=== PATIENT | male | born 1945 | race Caucasian/White ===

== ENCOUNTER 2020-03-27 13:10 | Outpatient (CLI) | payer MEDICARE, SELFPAY ==
[2020-03-30 01:37] LABS: PSA, Free 0.16 ng/mL; PSA, Total 1.9 ng/mL (<=4.0)
== END 2020-03-27 13:11 | disposition home or self-care (01) ==
LOC: ANHLAB 13:12
PROVIDERS: PCP Family Medicine; Visit Provider Radiology Radiation Oncology
DX: C61 Malignant neoplasm of prostate (principal)
CPT/HCPCS: 36415; 84153; 84154

== ENCOUNTER 2020-03-27 13:49 | Outpatient (CLI) | payer MEDICARE, SELFPAY ==
--- NOTE | ~2020-03-27 | CT_ITS ---
EXAMINATION:CT chest wo con DATE: 03/27/2020 14:16 INDICATION: Right lung lower lobe nodule. TECHNIQUE: Computed tomography (CT) of the chest was performed without intravenous contrast. Automate d exposure control and iterative reconstruction technique were employed. The dose-length product (DLP ) was 63.71 mGy-cm. COMPARISON: Chest CT 08/30/2019, 03/01/2019, 10/25/2018 FINDINGS: There is mild emphysema. There is mild scarring at left lung apex. There is mucous plugging in the lower lobes. There is mild atelectasis in the lower lobes. Calcified right lung nodules are c onsistent with old granulomatous disease. There is a 6 mm nodule in left lower lobe, stable from 10/10. There is a 5 mm nodule in left lower lobe with interval improvement. There is a 2.5 x 2.2 cm nodule in right lower lobe, stable from 10/25/2018 with benign biopsy results on 09/16/2019. There is a chronic 6 mm nodule at right major fissure. There are chronic 6 mm and 4 mm nodules in right lower lobe. No pleural effusion. The heart size is normal. There are coronary artery calcifications. No per icardial effusion. Calcifications in the spleen are consistent with old granulomatous disease. There is moderate thoracic spondylosis. There is mild chronic anterior wedging of multiple thoracic vertebr al bodies. IMPRESSION: 1. Stable pulmonary nodules, likely benign. 2. Mild emphysema. Reviewed, dictated and finalized at location E.
== END 2020-03-27 13:50 | disposition home or self-care (01) ==
LOC: ANHIMG 13:50
PROVIDERS: PCP Family Medicine; Visit Provider Radiology Radiation Oncology
DX: R91.1 Solitary pulmonary nodule (principal); J43.9 Emphysema, unspecified
CPT/HCPCS: 36415; 71250; 84153; 84154

== ENCOUNTER 2021-04-02 08:58 | Outpatient (CLI) | payer MEDICARE, SELFPAY ==
--- NOTE | ~2021-04-02 | CT_ITS ---
EXAMINATION: CT lung screening DATE: 04/02/2021 09:24 INDICATION: Personal history of nicotine dependence, prior smoker with 40 pack year history TECHNIQUE: Computed tomography (CT) of the chest was performed without intravenous contrast. The dose -length product (DLP) was 65.96 mGy-cm. Automated exposure control and iterative reconstruction techn [employer] were employed. COMPARISON: 03/27/2020 FINDINGS: There are multiple stable pulmonary nodules in the lungs. The largest is a 2.5 cm nodule of the right lower lobe which is previously undergone benign biopsy. No new pulmonary nodules are ident ified. There is mild emphysema. No pathologically enlarged thoracic lymph nodes are identified. The h eart size is normal. There is no pleural effusion or pneumothorax. Scarring is noted in the lung apic es. There is calcified coronary artery atherosclerosis. IMPRESSION: 1. Lung-RADS category 2: Benign appearance or behavior. Continue annual screening with noncontrast lo w-dose chest CT in 12 months. Reviewed, dictated and finalized at location A. IMPRESSION: 1. Lung-RADS category 2: Benign appearance or behavior. Continue annual screeni ng with noncontrast low-dose chest CT in 12 months.
== END 2021-04-02 08:59 | disposition home or self-care (01) ==
PROVIDERS: Visit Provider Radiology Radiation Oncology
DX: Z12.2 Encounter for screening for malignant neoplasm of respiratory organs (principal); Z87.891 Personal history of nicotine dependence
CPT/HCPCS: 71271

== ENCOUNTER 2022-04-10 10:08 | Outpatient (CLI) | payer MEDICARE, SELFPAY ==
--- NOTE | ~2022-04-10 | CT_ITS ---
EXAMINATION: CT lung screening DATE: 04/10/2022 10:27 INDICATION: Z12.2 - Encounter for screening for malignant neoplasm of... TECHNIQUE: Computed tomography (CT) of the chest was performed without intravenous contrast. Addition al 3D reconstructions utilizing coronal maximum intensity projection (MIP) were performed. Automated exposure control and iterative reconstruction technique were employed. The dose-length product was 64 .52 mGy-cm. COMPARISON: 04/02/2021 FINDINGS: Mild to moderate emphysema. There are new regions of patchy groundglass and more dense bandlike conso lidation in the bilateral lower lobes and in the anterior segment of the right upper lobe. With these bands extends through a prior 2.2 x 1.8 cm masslike opacity in the posterior basilar segment of the right lower lobe. The masslike opacity with prior biopsy demonstrating findings consistent with organ izing pneumonia has decreased in size to currently measuring approximately 1.7 x 1.6 cm. Also new are more subtle small groundglass opacities and tree-in-bud pattern in the right middle lobe. There are some scattered mucous plugging in the lower lobe bronchi extending to the regions of the lung disease . No pulmonary edema, pleural effusion or pneumothorax. Heart size is normal. Atherosclerotic coronar y artery calcification. Thoracic aorta is normal in caliber. No pathologically enlarged thoracic lymp hadenopathy. Thoracic kyphosis with chronic mild anterior wedging at T8-T11. IMPRESSION: 1. . Lung-RADS category 2S: Benign appearance or behavior. Continue annual screening with noncontrast low-dose chest CT in 12 months. S designation for clinically significant nonlung cancer findings of new lung disease in the right middle, right upper and bilateral lower lobes with appearance along wi th associated bronchial mucus plugging consistent with pneumonia with differential for the peripheral bandlike consolidation also including organizing pneumonia or COVID pneumonia. 2. Mild to moderate emphysema. Reviewed, dictated and finalized at location B. IMPRESSION: 1. . Lung-RADS category 2S: Benign appearance or behavior. Continue annual scre ening with noncontrast low-dose chest CT in 12 months. S designation for clini damian significant nonlung cancer findings of new lung disease in the right midd le, right upper and bilateral lower lobes with appearance along with associated bronchial mucus plugging consistent with pneumonia with differential for the p eripheral bandlike consolidation also including organizing pneumonia or COVID p neumonia. 2. Mild to moderate emphysema.
[2022-04-10 12:19] LABS: Prostate Specific Antigen 0.5 ng/mL (< OR = 4.0)
== END 2022-04-10 10:09 | disposition home or self-care (01) ==
LOC: ANHIMG 10:10
PROVIDERS: PCP Family Medicine; Visit Provider Radiology Radiation Oncology
DX: C61 Malignant neoplasm of prostate (principal); Z12.2 Encounter for screening for malignant neoplasm of respiratory organs; Z87.891 Personal history of nicotine dependence; Z85.46 Personal history of malignant neoplasm of prostate
CPT/HCPCS: 36415; 71271; 84153

== ENCOUNTER 2022-07-22 09:35 | Outpatient (CLI) | payer MEDICARE, SELFPAY ==
--- NOTE | ~2022-07-22 | CT_ITS ---
EXAMINATION: CT chest high resolution wo ar DATE: 07/22/2022 09:55 INDICATION: Abnormal lung cancer screening CT TECHNIQUE: Computed tomography (CT) of the chest was performed without intravenous contrast. The dose -length product (DLP) was 154.36 mGy-cm. Automated exposure control and iterative reconstruction tech nique were employed. COMPARISON: 04/10/2022, 03/27/2020 FINDINGS: There is a stable nodule of the right lower lobe previously demonstrated to reflect organiz ing pneumonia by CT-guided biopsy. Groundglass opacities of the lower lobes persist but have improved since the comparison examination. There are stable subpleural nodules of the right lower lobe as wel l as a stable right lower lobe nodule abutting the major fissure. No pleural effusion or pneumothorax . There is moderate emphysema. No pathologically enlarged thoracic lymph nodes are identified. The he art size is normal. Calcified coronary artery atherosclerosis is noted. There is a mucous plugging ar e again noted in the lower lobes. IMPRESSION: 1. Persistent but improved groundglass opacities in the lower lobes, consistent with resolving infect ion/inflammation. Stable pulmonary nodules. Annual low-dose lung cancer screening CT is recommended. Reviewed, dictated and finalized at location B. IMPRESSION: 1. Persistent but improved groundglass opacities in the lower lobes, consistent with resolving infection/inflammation. Stable pulmonary nodules. Annual low-do se lung cancer screening CT is recommended.
== END 2022-07-22 09:36 | disposition home or self-care (01) ==
PROVIDERS: PCP Family Medicine; Visit Provider Radiology Radiation Oncology
DX: R93.89 Abnormal findings on diagnostic imaging of other specified body structures (principal)
CPT/HCPCS: 71250

== ENCOUNTER 2023-04-15 14:56 | Outpatient (CLI) | payer MEDICARE, SELFPAY ==
--- NOTE | ~2023-04-15 | CT_ITS ---
EXAMINATION: CT lung screening DATE: 04/15/2023 14:51 INDICATION: Personal history of nicotine dependence, prior smoker with 40 pack year history TECHNIQUE: Computed tomography (CT) of the chest was performed without intravenous contrast. The dose -length product (DLP) was 65.40 mGy-cm. Automated exposure control and iterative reconstruction techn ique were employed. COMPARISON: 07/22/2022, 04/10/2022, 04/02/2021, 08/30/2019 FINDINGS: There is moderate emphysema. A right lower lobe nodule, previously demonstrated to reflect organizing pneumonia by CT-guided biopsy, is slightly decreased in size and demonstrates small industrial engineering intern al cystic components. Subpleural opacities at the lateral aspect of the right lower lobe demonstrates slight interval worsening compared to the most recent comparison but remained improved compared to t he 04/30/2022 examination. There is a 7 mm nodule of the right lower lobe abutting the major fissure o n image 85. There are subpleural nodules of the right lower lobe on image 79 which measure 6 mm and 4 mm which demonstrate low interval increase in size. There is a 5 mm nodule of the right lower lobe o n image 93. There is mucous plugging in the left lower lobe. No pleural effusion or pneumothorax. No pathologically enlarged thoracic lymph nodes are identified. The heart size is normal. Calcified yenny nary artery atherosclerosis is noted. IMPRESSION: 1. Lung-RADS category 4B: Very suspicious. Findings for which additional diagnostic testing, PET/CT, and/or tissue sampling is recommended. Reviewed, dictated and finalized at location F. IMPRESSION: 1. Lung-RADS category 4B: Very suspicious. Findings for which additional diagno stic testing, PET/CT, and/or tissue sampling is recommended.
[2023-04-15 16:23] LABS: Prostate Specific Antigen 0.3 ng/mL (< OR = 4.0)
== END 2023-04-15 14:57 | disposition home or self-care (01) ==
PROVIDERS: PCP Radiology Radiation Oncology; Visit Provider Radiology Radiation Oncology
DX: Z87.891 Personal history of nicotine dependence (principal); Z12.2 Encounter for screening for malignant neoplasm of respiratory organs; Z85.46 Personal history of malignant neoplasm of prostate
CPT/HCPCS: 36415; 71271; 84153

== ENCOUNTER 2023-05-01 08:53 | Outpatient (CLI) | payer MEDICARE, SELFPAY ==
--- NOTE | ~2023-05-01 | PE_ITS ---
EXAMINATION: PET skull to mid thigh DATE: 05/01/2023 11:30 INDICATION: Normal findings in lung field on prior imaging TECHNIQUE: Blood glucose level was 92 mg/dL. 9.317 mCi of 18-fluorodeoxyglucose (18-FDG) was administ ered i.v. Low dose computed tomography (CT) images were acquired from the base of the brain to the pr oximal thighs for attenuation correction and anatomic localization. Positron emission tomography (PET ) images were acquired in the same distribution beginning 52 minutes after injection. Images includin g fused PET/CT images were reconstructed in axial, coronal, and sagittal planes. Automated exposure c ontrol technique was employed. The dose-length product was 481.20mGy-cm. COMPARISON: Chest CT dated 04/15/2023 and PET/CT dated 12/03/2018 FINDINGS: Head/neck: There is symmetric increased activity in the oral cavity, parotid glands, submandibular glands and o cular muscles without CT correlate, likely physiologic. There is additional mild activity at the colten phery of the nearly completely opacified bilateral maxillary sinuses with air-fluid level on the left suggesting acute sinusitis. No pathologically enlarged cervical lymphadenopathy or suspicious foci o f increased FDG uptake in the visualized head or neck. Chest: Moderate emphysema. Again seen is mild uptake associated with geographic regions of groundglass opaci ty and consolidation in the bilateral lower lobes consistent with chronic scarring and interstitial l robbin disease. This includes a 2.1 cm more masslike opacity in the posterior basilar segment of the rig ht lower lobe previously biopsied with pathology read as changes consistent with organizing pneumoni a. No evidence of neoplasm. No evident FDG uptake associated with the additional smaller nodules in the right lower lobe. No pleural effusion. Heart size is normal. Atherosclerotic coronary artery calc ifications. Vascular is normal in caliber. No pathologically enlarged or FDG avid thoracic lymphadeno balta. Abdomen/pelvis/proximal thighs: Physiologic renal accumulation and excretion of FDG activity in the kidneys, bladder and along portio ns of ureters. Normal degree and heterogenous pattern of increased uptake throughout the liver withou t radiologic correlate or dominant FDG avid lesion. The gallbladder, pancreas and bilateral adrenal g lands are normal. Relatively homogeneous FDG uptake throughout the enlarged spleen which measures 17. 5 cm in maximal length time both the size and degree of FDG uptake are significantly increased from t he time of the prior PET CT at which time the splenic length measured 9.8 cm and has increased from at which time the splenic length measured 12.4 cm. Mild to moderate uptake scattered through out the stomach and bowels without radiologic correlate, also likely physiologic. There is moderate d iverticulosis with sigmoid colon predominance and without adjacent from trace stranding to suggest di verticulitis. No other abnormal foci of increased FDG uptake or pathologically enlarged lymphadenopat hy in the abdomen, pelvis or proximal thighs. Musculoskeletal: Moderate thoracic and lower cervical spondylosis. No suspicious lytic, blastic or FDG avid bone lesio ns. IMPRESSION: 1. No increased FDG uptake associated with the multiple pulmonary nodules of concern on prior CT. Whjaime kowalski reassuring would continue with follow-up low-dose noncontrast chest CT in 6 months. 2. Nonspecific splenomegaly now measuring 17.5 cm maximal length without evident pathologically enlar ged or FDG avid lymphadenopathy. Reviewed, dictated and finalized at location A. IMPRESSION: 1. No increased FDG uptake associated with the multiple pulmonary nodules of co ncern on prior CT. While reassuring would continue with follow-up low-dose nonc ontrast c
[2023-05-01 09:56] LABS: Glucose Point of Care 92 mg/dl (65-105)
== END 2023-05-01 08:54 | disposition home or self-care (01) ==
PROVIDERS: PCP Physician Assistant; Visit Provider Radiology Radiation Oncology
DX: R91.8 Other nonspecific abnormal finding of lung field (principal)
CPT/HCPCS: 78815; A9552

== ENCOUNTER 2023-05-08 11:18 | Day surgery (SDC) | payer MEDICARE, SELFPAY ==
[2023-04-10 08:37] VITALS: BMI 18.5
[2023-04-16 11:29] VITALS: BMI 19.1
--- NOTE | 2023-04-16 12:09 | SUR.PREOP ---
During preop interview, pt states he has no one to drive him. He wants to take an Uber. Instructed pt he cannot use [employer], number for [employer] given to pt. [facility]
--- NOTE | 2023-05-07 12:49 | P.PNAN_ITS ---
Anes - Initial Pre Proc Eval Procedure: Operation Date: 05/08/23 13:00 Proposed Procedures p Diagnostic Colonoscopy - Ravindra Torres MD Date/Time: 05/07/23 12:49 Surgeon: Ravindra Torres MD Pre Op Diagnosis: Positive Cologuard Patient Data Age: 77 Gender: M Height: 1.73 m Weight: 57 kg Allergies Allergy/AdvReac Type Severity Reaction Status Date / Time No Known Allergies Allergy Verified 05/08/23 11:59 Home Medications Medication Instructions Recorded Confirmed Type No Home Medications 04/16/23 05/08/23 History Patient hx anesthesia problems: none Family hx anesthesia problems: none Results Review: All pre-operative results and documents have been reviewed as part of the pre- operative evaluation. [facility] Past Medical History Medical History (Updated 05/08/23 @ 11:47 by Ravindra Torres MD) Prostate cancer Surgical History Surgical History (System 04/14/23 @ 10:34 by Love Staples) H/O colonoscopy H/O hernia repair Family History Family History (System 04/14/23 @ 10:34 by Love Staples) Father Cancer Father Family history of malignant neoplasm Social History Social History (System 04/14/23 @ 10:34 by Love Staples) Smoking packs per day: 1 Smoking cigarettes per day: 20.0 Years smoked: 25 Smoking pack-years: 25.00 Smoking status: Former smoker Tobacco type: cigarettes Second hand tobacco smoke exposure: No Smoking end date: 11/10/16 Alcohol intake: current Drinks per week: 28 Alcohol use details: 4 BEERS A DAY Substance use: never Substance use type: does not use Living arrangements: alone Occupation/Education: retired Gender identity (if verbalized by the patient): Male Spiritual care concerns: No Anes - Eval Final PreProcedure Day of Procedure 05/07/23 12:49 Patient weight: normal Heart: regular rate and rhythm Lungs: clear to auscultation and normal air movement Airway: Mallampati scale class II Neurological: alert and oriented Last oral intake: >/= 8 hours ASA classification: III Emergent: no Anesthetic plan: proceed Anesthesia type and monitoring: general GIVS and standard monitoring Results Review: All pre-operative results and documents have been reviewed as part of the pre- operative evaluation. Informed Consent: The patient's anesthetic plan and its attendant risks and benefits were discussed with the patient/family/POA. Questions were solicited and answers provided to the satisfaction of the patient/family/POA.
[2023-05-08 11:35] VITALS: BP 139/67; PULSE 76; RESP 20; TEMP 36.7; O2SAT 100
--- NOTE | 2023-05-08 11:46 | P.HP_ITS ---
History of Present Illness History of Present Illness Consent: Risks, benefits, and alternatives have been discussed and questions answered. Patient agrees to proceed with procedure. Chief complaint: Positive Cologuard Narrative: Charles Rao is a 77 year old male Presents for screening colonoscopy. Patient's current weight appetite and bowel movements are normal. Patient denies abdominal pain. He has had no bleeding. Family history noncontributory. Patient has recent Cologuard test was found to be positive. For this reason patient referred for screening colonoscopy. Review of Systems Review of Systems: Review of systems noncontributory. [facility] Past Medical History Medical History (Updated 05/08/23 @ 11:47 by Ravindra Torres MD) Prostate cancer Surgical History Surgical History (System 04/14/23 @ 10:34 by Love Staples) H/O colonoscopy H/O hernia repair Family History Family History (System 04/14/23 @ 10:34 by Love Staples) Father Cancer Father Family history of malignant neoplasm Social History Social History (System 04/14/23 @ 10:34 by Love Staples) Smoking packs per day: 1 Smoking cigarettes per day: 20.0 Years smoked: 25 Smoking pack-years: 25.00 Smoking status: Former smoker Tobacco type: cigarettes Second hand tobacco smoke exposure: No Smoking end date: 11/10/16 Alcohol intake: current Drinks per week: 28 Alcohol use details: 4 BEERS A DAY Substance use: never Substance use type: does not use Living arrangements: alone Occupation/Education: retired Gender identity (if verbalized by the patient): Male Spiritual care concerns: No Meds Home Medications and Allergies Home Medications Medication Instructions Recorded Confirmed Type No Home Medications 04/16/23 04/17/23 History Allergies Allergy/AdvReac Type Severity Reaction Status Date / Time No Known Allergies Allergy Verified 04/17/23 09:23 Exam Narrative: Physical exam reveals patient to be alert. Vital signs stable. HEENT exam is unremarkable. Patient is anicteric. Lungs are clear to auscultation and percussion. Heart is without murmur or extra sounds. Abdomen bowel sounds are present soft nontender with no hepatosplenomegaly. Digital external rectal exam is normal. Assessment and Plan Assessment and plan (1) Positive colorectal cancer screening using Cologuard test: Code(s): R19.5 - Other fecal abnormalities Status: Acute Assessment and Plan: Patient had a Cologuard test that was positive. For this reason colonoscopy will be performed.
[2023-05-08] MEDS: LACTATED RINGERS 1,000 ML 150 ML IV CONT (12:03)
[2023-05-08 12:53] VITALS: BP 91/55; PULSE 76; RESP 16; O2SAT 97
[2023-05-08 13:03] VITALS: BP 95/64; PULSE 75; RESP 16; O2SAT 97
[2023-05-08 13:13] VITALS: BP 115/66; PULSE 79; RESP 16; O2SAT 97
--- NOTE | 2023-05-08 13:29 | SUR.PHASEII ---
PT AWAKE AND ALERT. DRESSED. DRINKING SODA AND EATING CRACKERS. DENIES PAIN OR NAUSEA. WAITING ON C RIDE TO ARRIVE. PT DRESSED AND READY FOR DISCHARGE.
--- NOTE | 2023-05-08 13:40 | WPDANESPN ---
Anes - Prog Note Post-Op Date/Time: 05/08/23 13:40 Cardiovascular status: normal Respiratory status: normal Airway patency: baseline Mental status: baseline Post-Op hydration status: normal Vital Signs: Last Vital Signs Temp 36.7 C 05/08/23 11:35 Pulse 79 05/08/23 13:13 Resp 16 05/08/23 13:13 BP 115/66 05/08/23 13:13 Pulse Ox 97 05/08/23 13:13 O2 Del Method Room Air 05/08/23 13:13 Pain Score (VAS): 0 I/O: Intake & Output 05/07/23 05/08/23 05/08/23 23:59 07:59 15:59 Intake Total 500 Balance 500 Post-procedural complaints: none Patient Feedback: Patient satisfied with anesthetic care. Other Findings: Patient vital signs back to baseline. Patient denies nausea and vomiting. Patient's pain under control. Patient OK for discharge.
--- NOTE | 2023-05-08 14:03 | SUR.PHASEII ---
1355; PT PICKED UP BY [facility] CLINICAL INFORMATICS DIRECTOR.
== END 2023-05-08 13:54 | disposition home or self-care (01) ==
PROVIDERS: Visit Provider Internal Medicine Gastroenterology
PROC: 0DJD8ZZ Inspection of Lower Intestinal Tract, Via Natural or Artificial Opening Endoscopic (ICD-10-PCS; CPT 45378; principal; 2023-05-08 13:00)
DX: R19.5 Other fecal abnormalities (principal)
CPT/HCPCS: 45378

== ENCOUNTER 2023-07-19 08:30 | Emergency (ER) | payer MEDICARE, SELFPAY ==
--- NOTE | 2023-07-19 08:32 | ED.EXTPRO ---
HPI - Extremity Problem General Chief complaint: Unspecified Stated complaint: Left and Right Ankle Swelling, Lethargic Time Seen by Provider: 07/19/23 08:31 Source: patient Mode of arrival: ambulatory Limitations: no limitations History of Present Illness HPI Narrative: Charles is a 77-year-old male patient presenting to the clinic today with complaints of bilateral ankle swelling and feeling lethargic x3 days. He reports his symptoms of BLE and fatigue started on Friday. He denies any chest pain or shortness of breath. Denies blood in stools. No history of CHF, cardiac dysrhythmias, venous insufficiency, or PVD. Former smoker- History of prostate [id number] radiation tx and positive Cologuard screening- colonoscopy done in April showed no active bleeding but he did have diverticulosis and internal hemorrhoids. Related Data Home Medications Medication Instructions Recorded Confirmed No Home Medications 04/16/23 07/19/23 Allergies Allergy/AdvReac Type Severity Reaction Status Date / Time No Known Allergies Allergy Verified 07/19/23 08:45 Review of Systems Review of Systems: Pertinent positives per HPI. Patient denies any fever, chills, rash, headache, visual changes, dizziness, cough, runny nose, sore throat, shortness of breath, chest pain, palpitations, nausea, vomiting, diarrhea, constipation, abdominal pain, or any urinary issues. [facility] Past Medical History Medical History (Updated 07/19/23 @ 08:49 by Chris Tavarez APRN) Prostate cancer Surgical History Surgical History H/O colonoscopy H/O hernia repair Family History Family History Father Cancer Father Family history of malignant neoplasm Social History Social History Smoking packs per day: 1 Smoking cigarettes per day: 20.0 Years smoked: 25 Smoking pack-years: 25.00 Smoking status: Former smoker Tobacco type: cigarettes Second hand tobacco smoke exposure: No Smoking end date: 11/10/16 Alcohol intake: current Drinks per week: 28 Alcohol use details: 4 BEERS A DAY Substance use: never Substance use type: does not use Living arrangements: alone Occupation/Education: retired Gender identity (if verbalized by the patient): Male Spiritual care concerns: No Comments At the time of my signature, I reviewed and agree with the nursing past medical, surgical, social, and family history. There is no relevant family history pertinent to the patient complaint. Exam Narrative: General: Well-developed, thin appearing, in no apparent distress Head: Normocephalic, atraumatic. Cardio: Regular rate and rhythm, s1 and s2 normal, no murmur appreciated. Resp: Clear to auscultation bilaterally, no rhonchi, rales, wheezing or rubs. Extremities: No deformity, 2-3+ pitting edema in BLE, no cyanosis, capillary refill less than 2 seconds, peripheral pulses palpable and strong. Integumentary: [place], warm, and dry, intact without lesion, no rashes. Course Course Emergency Course: Portions of this record may have been created with voice recognition software. Level of Care: Express Care Visit Vital Signs Vital signs: Vital signs reviewed MDM - Extremity (Nontraumatic) MDM Narrative Medical decision making narrative: At the time of visit patient is resting comfortably on the exam table.Patient reports fatigue with bilateral lower extremity swelling. Denies any shortness of breath or chest pain. Explained to the patient that we were unable to do any blood work/Doppler ultrasound in the clinic and I recommend he be transferred to the ER for further evaluation. Patient agrees to transfer. Contacted [facility] and spoke with Nicole LIND and report was given for continuity of care. Dr. Lan accepts patient. Alina
[2023-07-19 08:40] VITALS: BP 113/62; PULSE 90; RESP 16; TEMP 36.5; O2SAT 96
== END 2023-07-19 08:55 | disposition short-term general hospital (02) ==
PROVIDERS: Emergency Provider Nurse Practitioner Family; PCP Physician Assistant
DX: R60.0 Localized edema (principal); R53.83 Other fatigue; Z87.891 Personal history of nicotine dependence; Z85.46 Personal history of malignant neoplasm of prostate; Z92.3 Personal history of irradiation
CPT/HCPCS: 99212; G0463

== ENCOUNTER 2023-07-19 09:09 | Inpatient (IN) | payer MEDICARE, SELFPAY ==
[2023-07-19] VITALS (20 sets, daily range): BP systolic 116–142; BP diastolic 53–85; PULSE 80–118; RESP 14–19; TEMP 36.2–36.8; O2SAT 74–100; BMI 23.2
--- NOTE | ~2023-07-19 | XR_ITS ---
XR chest 1V portable DATE: 07/19/2023 09:39 INDICATION: Shortness of breath TECHNIQUE: Portable AP chest on 07/19/2023 at 0938 hours COMPARISON: CT lung screening FINDINGS: Bilateral hyperinflation consistent with COPD. There are patchy infiltrates and/atelectasis in the right mid and particularly both lower lung zones. Mild blunting of the costophrenic angles ma y indicate small pleural effusions. Heart size. Aortic calcification. Diffuse osteopenia. Levoscoliosis of the thoracic spine. IMPRESSION: Patchy right mid and bilateral lower lung infiltrates which may be due to pneumonia or as piration Emphysema Small bilateral pleural effusions Osteopenia Reviewed, dictated and finalized at location A. IMPRESSION: Patchy right mid and bilateral lower lung infiltrates which may be due to pneumonia or aspiration Emphysema Small bilateral pleural effusions Osteopenia
--- NOTE | ~2023-07-19 | CT_ITS ---
EXAMINATION: CTA chest PE abdomen pel DATE: 07/19/2023 14:23 INDICATION: Dyspnea. Elevated d-dimer. TECHNIQUE: Computed tomography angiography (CTA) of the chest was performed with 100 mL Omnipaque-350 intravenous contrast timed to evaluate the pulmonary arteries. Coronal maximum intensity projection 3D-reconstructions were created by the technologist. Automated exposure control and iterative reconst ruction technique were employed. Exam dose: 363.64 mGy-cm total exam DLP. COMPARISON: 07/19/2023 portable AP chest 05/01/2023 PET/CT imaging FINDINGS: There is diagnostic contrast enhancement of the pulmonary arteries and no evidence of pulmo nary embolism. Normal heart size. Coronary artery calcification. No thoracic aortic aneurysm or dissection. There is thoracic aortic and great vessel atherosclerotic calcification.. There are moderate bilateral pleural effusions. There is associated bilateral dependent lower lobe in filtrate/atelectasis and lesser dependent bilateral upper lobe atelectasis, right greater than left. Moderate emphysematous changes. No pericardial effusion. Bilateral mild hilar lymph node and mediastinal prominence, likely reactive. No suspicious osteolytic or osteoblastic lesions. IMPRESSION: No evidence of pulmonary embolism Moderate bilateral pleural effusions with associated moderate bilateral compressive dependent lower l obe atelectasis, lesser bilateral dependent upper lobe atelectasis Moderate emphysema Reviewed, dictated and finalized at Location A. Reviewed, dictated and finalized at location A. IMPRESSION: No evidence of pulmonary embolism Moderate bilateral pleural effusions with associated moderate bilateral dequan sive dependent lower lobe atelectasis, lesser bilateral dependent upper lobe at electasis Moderate emphysema
--- NOTE | ~2023-07-19 | US_ITS ---
US venous doppler [facility] DATE: 07/19/2023 14:16 INDICATION: Bilateral lower extremity pain. Dyspnea. Positive d-dimer. TECHNIQUE: Real-time and color flow imaging and Doppler analysis of the veins of both lower extremiti es COMPARISON: None FINDINGS: The greater saphenous veins are patent. There is spontaneous and phasic flow and normal aug mentation and color flow signal and normal compression of the deep veins of both lower extremities. IMPRESSION: No evidence of deep venous thrombosis of the lower extremities Reviewed, dictated and finalized at Location A. Reviewed, dictated and finalized at location A.
--- NOTE | ~2023-07-19 | US_ITS ---
US abdomen complete EXAMINATION: US Abdomen Complete INDICATION: Splenomegaly PROCEDURE: Realtime High Resolution abdomen ultrasound. COMPARISON: Ultrasound dated 11/23/2018 FINDINGS: Gallbladder wall is thickened. No definite gallstones. There is ascites. Common bile duct measures 4.6 mm. Liver echotexture within normal limits without focal mass. Liver is enlarged measuring 24 cm. There i s bowel thickening superior to the umbilicus recommend correlation with CT. Pancreas within normal li mits. Pancreatic tail is obscured by bowel gas. Spleen is enlarged measuring 21.1 cm. Renal echotex ture is within normal limits bilaterally without hydronephrosis, contour deforming mass or renal ston e. Right kidney measures 9.8 cm. Left kidney measures 10.7 cm. There is ascites. There is a 3 cm infrarenal abdominal aortic aneurysm.. Portal vein is patent. No sonographic Lee's sign indicated by the technologist. IMPRESSION: 1: Hepatosplenomegaly. 2: Abnormal bowel thickening superior to the umbilicus, nonspecific. Correlation with CT recommended . 3: Ascites. 4: Infrarenal abdominal aortic aneurysm measuring 3 cm. Reviewed, dictated and finalized at location B. IMPRESSION: 1: Hepatosplenomegaly. 2: Abnormal bowel thickening superior to the umbilicus, nonspecific. Correlati on with CT recommended. 3: Ascites. 4: Infrarenal abdominal aortic aneurysm measuring 3 cm.
--- NOTE | ~2023-07-19 | XR_ITS ---
XR chest 1V portable 07/21/2023 10:27 Indication: Covid. Effusion. Procedure: AP portable chest Comparison: Comparison to multiple prior studies sequentially, with oldest reviewed study dated 05/2019. Findings: There are bilateral interstitial infiltrates of the lung bases with focal airspace consolid ation in the lower lobes. Small pleural effusions. The lungs are hyperinflated which is consistent wi th, but not diagnostic of chronic obstructive pulmonary disease. No pneumothorax. Impression: 1: Bibasilar mixed interstitial and airspace disease, consistent with pneumonia. 2: Small pleural effusions. Reviewed, dictated and finalized at location B. Impression: 1: Bibasilar mixed interstitial and airspace disease, consistent with pneumonia . 2: Small pleural effusions.
--- NOTE | 2023-07-19 09:14 | ECG_ITS ---
Measurements Intervals [place] Rate: 83 P: 46 TX: 136 QRS: 35 QRSD: 98 T: 49 QT: 384 QTc: 452 Interpretive Statements SINUS RHYTHM INCOMPLETE RIGHT BUNDLE BRANCH BLOCK BORDERLINE ECG COMPARED TO ECG 12/17/2018 10:59:08 INCOMPLETE RIGHT BUNDLE-BRANCH BLOCK NOW PRESENT Electronically Signed On 07-19-2023 16:30:39 CDT by Ricky Rios D.O.
--- NOTE | 2023-07-19 09:31 | ED.EXTPRO ---
HPI - Extremity Problem General Chief complaint: Extremity Problem,Nontraumatic <Lalitha Wilburn PA-C - Last Filed: 07/19/23 15:31> Stated complaint: BLE swelling, SOB <DOUG Woodruff Last Filed: 07/19/23 15:31> Time Seen by Provider: 07/19/23 09:22 <Lalitha Wilburn PA-C - Last Filed: 07/19/23 15:31> History of Present Illness HPI Narrative: 77-year-old male with a history of prostate cancer requiring radiation reports for evaluation for fatigue x1 week, dyspnea and bilateral lower extremity edema x3 days. Patient reports he is a former smoker, stopped smoking 7 years ago. States he used to smoke a pack a day for a long time . Denies history of diagnosed COPD or emphysema. He has not had lower extremity edema like this in the past. He denies chest pain or orthopnea. He does report a nonproductive cough for the past week. Denies fever, body aches or chills, abdominal pain, nausea or vomiting, diarrhea. Denies melena or hematochezia. States he has been eating and drinking well. Denies night sweats, weight loss. <DOUG Woodruff Last Filed: 07/19/23 15:31> Related Data Home medications: Home Medications Medication Instructions Recorded Confirmed No Home Medications 04/16/23 07/19/23 <Lalitha Wilburn PA-C - Last Filed: 07/19/23 15:31> Allergies/Adverse reactions: Allergies Allergy/AdvReac Type Severity Reaction Status Date / Time No Known Allergies Allergy Verified 07/19/23 09:14 <DOUG Woodruff Last Filed: 07/19/23 15:31> Review of Systems Review of Systems: CONSTITUTIONAL: Denies fever, chills EYES: Denies visual changes, redness, or discharge. ENT: Denies rhinorrhea, congestion, sore throat, or otalgia. CARDIOVASCULAR: See HPI RESPIRATORY: See HPI GASTROINTESTINAL: Denies abdominal pain, nausea, vomiting, or diarrhea. GENITOURINARY: Denies dysuria or hematuria. SKIN: Denies rash or itching. MUSCULOSKELETAL: Denies back pain, joint pain, or myalgia. NEUROLOGIC: Denies headache, numbness, dizziness, or weakness. PSYCHIATRIC: Denies anxiety or depression. <Lalitah Wilburn PA-C - Last Filed: 07/19/23 15:31> [facility] Past Medical History Medical History: Medical History (Updated 07/19/23 @ 18:17 by Luisa Thomas PA-C) Osteoporosis Prostate cancer (2017) Status post radiation. <Lalitha Wilburn PA-C - Last Filed: 07/19/23 15:31> Surgical History Surgical History: Surgical History (Updated 07/19/23 @ 18:17 by Luisa Thomas PA-C) History of colonoscopy History of right inguinal hernia repair <Lalitah Wilburn PA-C - Last Filed: 07/19/23 15:31> Family History Family History: Family History Father Cancer Father Family history of malignant neoplasm <Lalitha Wilburn PA-C - Last Filed: 07/19/23 15:31> Social History Social History: Social History (Updated 07/19/23 @ 18:19 by Luisa Thomas PA-C) Social History: Surrogate medical decision maker: Code status: Full code. Smoking packs per day: 1 Smoking cigarettes per day: 20.0 Years smoked: 25 Smoking pack-years: 25.00 Smoking status: Former smoker Tobacco type: cigarettes Second hand tobacco smoke exposure: No Alcohol intake: current Drinks per week: 14 Substance use: never Substance use type: does not use Lack of Transportation: No Lack of Food: Never True Current Housing: I Have Housing Concerned About Future Housing: Decline to Answer Difficulty Paying Gas/Electric Bills: Decline to Answer Difficulty Paying for Meds: Decline to Answer Currently Unemployed: Decline to Answer Education: Decline to Answer Difficulty w/ Childcare or Family Care: No Living arrangements: alone Occupation/Education: retired Spiritual care concerns: No <Lalitha Wilburn PA-C - Last Filed: 07/19/23 15:31> Exam Narrative:
[2023-07-19] MEDS: ALBUTEROL SULFATE NEB 2.5 MG/3 ML INH INHALATION (09:38)
[2023-07-19] MEDS: IPRATROPIUM BR 0.02% INH SOLN 0.5 MG/2.5 ML VIAL INHALATION (09:38)
[2023-07-19 09:54] LABS: Alanine Aminotransferase 29 U/L (6-50); Albumin Level 2.9 g/dL (3.5-5.1); Alkaline Phosphatase 265 U/L (38-126); Anion Gap 4 mmol/L (8-16); Aspartate Amino Transferase 148 U/L (17-59); Blood Urea Nitrogen 17 mg/dL (9-20); Calcium 7.9 mg/dL (8.4-10.2); Carbon Dioxide 26 mmol/L (22-30); Chloride 100 mmol/L (98-107); Estimated CRCL calculation 58 ml/min; Estimated Glomerular Filt Rate > 60; Glucose 92 mg/dL (65-110); Potassium 4.6 mmol/L (3.4-5.0); Sodium 130 mmol/L (137-145)
[2023-07-19 10:18] LABS: NT Pro B Type Natriuretic Pept 836 pg/mL (19.9-100); Troponin I 0.055 ng/mL (0.000-0.034)
--- NOTE | 2023-07-19 10:25 | PC.NURSE ---
Pt denies chest pain or shortness of breath Troponin elevated & [employer] notified. Lung sounds clear, heart sounds regular. Unable to void at this time for UA.
[2023-07-19 11:03] LABS: Influenza A QL RT-PCR Negative (Negative); Influenza B QL RT-PCR Negative (Negative); SARS-CoV-2 RNA PCR Positive (Negative)
[2023-07-19 11:29] LABS: Hematocrit 34.9 % (42.0-52.0); Hemoglobin 11.3 g/dL (14.0-18.0); Immature Platelet Fraction Pct 8.1 % (0.9-11.2); Mean Corpuscular HGB Conc 32.4 g/dl (32-36); Mean Corpuscular Hemoglobin 33.5 pg (26-34); Mean Corpuscular Volume 103.6 fl (80-100); Platelet Count Result 30 k/mm3 (150-375); Red Blood Count 3.37 M/mm3 (4.6-6.20); Red Cell Distribution Width 17.2 % (11.5-14.5); White Blood Count 29.9 K/mm3 (4.5-10.0)
[2023-07-19 11:40] LABS: Partial Thromboplastin Time 29.3 SECONDS (22.3-36.8)
[2023-07-19 12:00] LABS: D Dimer > 20.00 ug/mL (<0.48)
[2023-07-19 12:17] LABS: Anisocytosis 1+ (NORMAL); Band Neutrophils Percent 1 % (0-6); Lymphocytes Absolute Manual 18.83 K/mm3 (1.1-4.5); Monocytes Absolute Manual 3.58 K/mm3 (0.1-0.90); Monocytes Percent Manual 12 % (3-9); Neutrophils Absolute Manual 7.47 K/mm3 (1.3-6.7); Neutrophils Percent Manual 24 % (46-73); Platelet Estimate Decreased (Adequate); Schistocytes None Seen (NORMAL); Smudge Cells MANY; Total Cells Counted 100
[2023-07-19 12:55] LABS: Fibrinogen 157 mg/dl (215-510)
[2023-07-19 13:04] LABS: Appearance Urine Cloudy (Clear); Bacteria Urine None Seen /hpf; Bilirubin Urine 1+ (Negative); Blood Urine Negative (Negative); Color Urine Dark Yellow (Yellow); Glucose Urine UA Negative (Negative); Ketones Urine Negative (Negative); Leukocyte Esterase Ur Negative LEU/UL (Negative); Nitrate Urine Negative (Negative); Protein Urine 1+ mg/dL (Negative); RBC Urine 0-2 /hpf (0-2); Specific Grav Ur 1.023 (1.001-1.035); Squamous Epithelial Cell Urine None seen /hpf (Few); WBC Urine 0-5 /hpf
[2023-07-19 13:05] LABS: Add Urine Microscopic? YES
[2023-07-19 13:10] LABS: Lactic Acid Reflex 1.7 mmol/L (0.7-2.0)
[2023-07-19 13:23] LABS: Troponin I 0.049 ng/mL (0.000-0.034)
--- NOTE | 2023-07-19 14:02 | PC.NURSE ---
Pt out of department antibiotics delayed
[2023-07-19] MEDS: AZITHROMYCIN 500 MG/NS 250 ML 500 MG/250 ML BAG 250 MG IVPB (15:13)
--- NOTE | 2023-07-19 15:24 | PC.NURSE ---
Low Sodium meal order for pt
[2023-07-19] MEDS: FUROSEMIDE INJ 40 MG/4 ML VIAL IV PUSH (15:53)
--- NOTE | 2023-07-19 16:34 | PC.NURSE ---
Pt ate 100% of low sodium tray. Assessment unchanged.
--- NOTE | 2023-07-19 17:49 | ADMGEN ---
This patient, Charles Rao, was admitted to IMU Room 204-01. Patient/family oriented to hospital policies and general routines including ID bracelet, bed and alarms, visiting hours, pain management, procedures, bathroom and other care routines, personal items, smoking policy, room service/diet, and visiting hours. Information on how to activate the Rapid Response Team has been discussed. Patient/Family are encouraged to report perceived risks to care and to ask questions if they do not understand what they are told or what they should do.
--- NOTE | 2023-07-19 18:10 | PM.IMHP ---
H&P: HPI History of Present Illness Date/Time: 07/19/23 18:45 Chief Complaint: Weakness, shortness of breath, ankle swelling. Narrative: This is a 77-year-old male with history of prostate cancer status post radiation who presented to the emergency department for evaluation of weakness, shortness of breath, and ankle swelling. The patient provides the following history. He has not been feeling well since Friday afternoon with generalized malaise, body aches, fatigue, nonproductive cough, and shortness of breath with exertion. He also reports that his lower legs have been swelling for the past week and a half which is unusual for him. He denies fever, chills, sweats, headache, sinus congestion, sore throat, chest and pleuritic pain, palpitations, orthopnea, paroxysmal nocturnal dyspnea, nausea, vomiting, and diarrhea. 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 He has no known history of heart disease or thyroid disease. He also denies history of venous thromboembolism. In the ED: Afebrile on arrival with stable vital signs. Labs were significant for a WBC of 29.9, hemoglobin 11.3, MCV 103.6, platelet 30. 63% lymphocytes and 24% neutrophils noted on differential. Many smudge cells were seen on peripheral smear. PT, PTT, and INR were normal however his fibrinogen was low at 157 and D-dimer was greater than 20. Troponin was mildly elevated 0.050 and proBNP was 836. Total bilirubin, AST, and alkaline phosphatase were also a bit elevated. He tested positive for COVID. He denied recent vaccine in heparin exposure. CT a of the chest, abdomen, and pelvis showed no evidence of PE, moderate bilateral pleural effusions, and moderate emphysema. Venous Doppler ultrasounds were negative for DVT. Interventions in the ED include DuoNeb treatment, empiric antibiotics (azithromycin and ceftriaxone) for possible pneumonia, and furosemide 40 mg IV push. He is being admitted to the IMU in this setting for closer monitoring and further workup. Review of Systems Review of Systems: Twelve systems were reviewed. Weight has remained stable. He has cut back his drinking over the past month at the suggestion of his doctor, now drinking 1 to 2 beers a day. He denies signs and symptoms of alcohol withdrawal. No history of seizures. He denies easy bruising and bleeding. No epistaxis, gingival bleeding, hemoptysis, hematemesis, melena, hematochezia, or hematuria. He has not noticed any swollen lymph nodes. Except as documented, all other systems were reviewed and are negative. [facility] Past Medical History Medical History (Updated 07/20/23 @ 00:20 by Luisa Thomas PA-C) Osteoporosis Prostate cancer (2017) Status post radiation. Surgical History Surgical History (Updated 07/19/23 @ 18:17 by Luisa Thomas PA-C) History of colonoscopy History of right inguinal hernia repair Family History Family History Father Cancer Father Family history of malignant neoplasm Social History Social History (Updated 07/20/23 @ 00:21 by Luisa Thomas PA-C) Social History: Surrogate medical decision maker: Amy Valdivia, daughter. Code status: Full code. Smoking packs per day: 1 Smoking cigarettes per day: 20.0 Years smoked: 25 Smoking pack-years: 25.00 Smoking status: Former smoker Tobacco type: cigarettes Second hand tobacco smoke exposure: No Alcohol intake: current Drinks per week: 14 Substance use: never Substance use type: does not use Lack of Transportation: No Lack of Food: Never True Current Housing: I Have Housing Concerned About Future Housing: Decline to Answer Difficulty Paying Gas/Electric Bills: Decline to Answer Difficulty Paying for Meds: Decline to Answer Currently Unemployed: Decline to Answer Education: Decline to Answer Di
[2023-07-20] VITALS (11 sets, daily range): BP systolic 117–124; BP diastolic 59–72; PULSE 82–100; RESP 17–19; TEMP 36.4–36.7; O2SAT 94–97
[2023-07-20 04:47] LABS: Hematocrit 33.3 % (42.0-52.0); Hemoglobin 11.1 g/dL (14.0-18.0); Immature Platelet Fraction Pct 7.1 % (0.9-11.2); Mean Corpuscular HGB Conc 33.3 g/dl (32-36); Mean Corpuscular Hemoglobin 34.4 pg (26-34); Mean Corpuscular Volume 103.1 fl (80-100); Mean Platelet Volume 10.9 fl (7.4-10.4); Platelet Count Result 28 k/mm3 (150-375); Red Blood Count 3.23 M/mm3 (4.6-6.20); Red Cell Distribution Width 17.3 % (11.5-14.5)
[2023-07-20 04:52] LABS: Alanine Aminotransferase 27 U/L (6-50); Albumin Level 2.6 g/dL (3.5-5.1); Alkaline Phosphatase 245 U/L (38-126); Anion Gap 3 mmol/L (8-16); Aspartate Amino Transferase 124 U/L (17-59); Bilirubin,Total 1.6 mg/dL (0.2-1.3); Blood Urea Nitrogen 19 mg/dL (9-20); Calcium 7.5 mg/dL (8.4-10.2); Carbon Dioxide 26 mmol/L (22-30); Chloride 102 mmol/L (98-107); Estimated CRCL calculation 60 ml/min; Estimated Glomerular Filt Rate > 60; Glucose 86 mg/dL (65-110); Lactate Dehydrogenase 896 U/L (120-246); Potassium 4.5 mmol/L (3.4-5.0); Sodium 131 mmol/L (137-145)
[2023-07-20 05:24] LABS: Hepatitis B Surface Antigen Negative (Negative)
[2023-07-20 05:30] LABS: HAV RESULT Negative (Negative); Hepatitis B Core IgM Result Negative (Negative)
[2023-07-20 05:41] LABS: Hepatitis C Virus Antibody Negative (Negative)
[2023-07-20 05:48] LABS: INR 1.1; Partial Thromboplastin Time 31.6 SECONDS (22.3-36.8); Prothrombin Time 14.7 Seconds (11.1-14.7)
[2023-07-20 05:57] LABS: Fibrinogen 161 mg/dl (215-510)
--- NOTE | 2023-07-20 10:39 | PM.IMPN ---
Progress Note: A&P Assessment and Plan (1) COVID-19: Code(s): U07.1 - COVID-19 Status: Acute Assessment and Plan: No indication for dexamethasone or remdesivir at this time. He was started on azithromycin and ceftriaxone in the emergency department for possible pneumonia which will be continued for now however bacterial pneumonia seems less likely (leukocytosis is likely elevated due to suspected CLL). Initiate isolation precautions. Continue supportive care. (2) Elevated troponin: Code(s): R77.8 - Other specified abnormalities of plasma proteins Status: Acute Assessment and Plan: Troponin is mildly elevated but has been flat making acute coronary syndrome unlikely. He has not had any chest pain whatsoever. EKG showed a sinus rhythm with incomplete right bundle branch block without ST segment changes. Echocardiogram ordered. (3) Pleural effusion: Code(s): J90 - Pleural effusion, not elsewhere classified Status: Acute Assessment and Plan: Moderate bilateral pleural effusions noted on imaging today. Etiology not entirely clear. Troponin and BNP are both mildly elevated and an echocardiogram has been ordered for further evaluation. He received 40 mg IV furosemide in the ED. (4) Bilateral leg edema: Code(s): R60.0 - Localized edema Status: Acute Assessment and Plan: Patient reports this has developed in the last week or so. Venous Doppler ultrasounds were negative for DVT. Total protein and albumin are quite low which could be causing some of the swelling. He also has bilateral pleural effusions, mildly elevated troponin BNP, and echocardiogram has been ordered to assess for possible CHF. (5) Elevated LFTs: Code(s): R79.89 - Other specified abnormal findings of blood chemistry Status: Acute Assessment and Plan: Total bilirubin, AST, and alkaline phosphatase are all a bit elevated. Abdominal exam is benign and CT of the abdomen and pelvis did not show any acute findings. May be related to COVID however unusual that ALT is normal. Check hepatitis panel and monitor. (6) Abnormal CBC: Code(s): R79.89 - Other specified abnormal findings of blood chemistry Status: Acute Assessment and Plan: 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 Hematology consulted. (7) Thrombocytopenia: Code(s): D69.6 - Thrombocytopenia, unspecified Status: Acute Assessment and Plan: Possibly sequestration as spleen feels a bit large on exam. Concerns for CLL as above. (8) Abnormal coagulation profile: Code(s): R79.1 - Abnormal coagulation profile Status: Acute Assessment and Plan: PT, PTT, and INR are all normal however fibrinogen is low, D-dimer is markedly elevated, and platelet count is low. Concerns for chronic DIC. No evidence of bleeding or thrombus at this time. Hematology consulted as above. Subjective Date/time seen: 07/20/23 10:39 Interval history: no new issues Exam Narrative: General: Mildly ill-appearing gentleman in the semi-Goodson position in bed in no acute distress. Weight: 69.3 kg. BMI: 23.2. HEENT: PERRL, EOMI. Sclera anicteric. Oral mucosa moist. Tacky mucous membranes. Neck: Supple. No lymphadenopathy or JVD. Respiratory: Respirations are nonlabored and he is speaking in full sentences. Lung sounds are diminished at the bases with fine crackles. Cardiovascular: Regular rate and rhythm with S1-S2. Gastrointestinal: Abdomen is soft, nontender, and nondistended with positive bowel sounds. Spleen feels a bit enlarged. Skin: Warm and dry. No rash or lesions on limited exam. Extremities: No cyanosis or clubbing. 2+ lower extremity edema bilaterally to the knees. No palpable knots or cords. Negative Mary Ellen sign bilaterally. Neurological: Alert. Cranial nerves 2-12 are grossly intact. No gross focal deficits to ca
[2023-07-20] MEDS: AZITHROMYCIN 500 MG/NS 250 ML 500 MG/250 ML BAG 250 MG IVPB (16:10)
[2023-07-21] VITALS (8 sets, daily range): BP systolic 115–137; BP diastolic 59–63; PULSE 84–95; RESP 18–20; TEMP 36.1–36.3; O2SAT 94–100
--- NOTE | 2023-07-21 | ECHO_ITS ---
Patient Info Name: Charles Rao Age: 77 years : 1945 Gender: Male Ht: 68 in Wt: 152 lbs BSA: 1.82 m2 HR: 95 bpm BP: 124 / 72 mmHg Heart Rhythm: Sinus Rhythm Technical Quality: Fair Exam Date: 07/21/2023 1:24 PM Exam Location: [facility] Patient Status: Inpatient Admit Date: 07/19/2023 Staff Ordering Physician: Luisa Thomas PA-C Manager Wind: Jill Iverson RDCS Attending Provider: Idalia Oleary DO Referring Physician: Martha MONCADA; Exam Type: CA echo doppler color flow Study Info Indications - edema, pleural effusions, elevated Complete two-dimensional, color flow and Doppler transthoracic echocardiogram is performed. Summary 1. Complete two-dimensional, color flow and Doppler transthoracic echocardiogram is performed. 2. Normal left ventricular size and hyperdynamic systolic contractility. 3. Grade 1 diastolic noncompliance. 4. Mildly sclerotic but not stenotic aortic valve. Left Ventricle Left ventricular chamber dimension is normal. Left ventricular systolic function is hyperdynamic, estimated at >70%. The left ventricular diastolic function is grade I diastolic dysfunction. Right Ventricle Right ventricular chamber dimension is normal. Left Atria Left atrial chamber dimension is normal. Right Atria Right atrial chamber dimension is normal. Aortic Valve The aortic valve is trileaflet. There is mild aortic valve sclerosis. Pulmonic Valve The pulmonic valve is not well visualized. Mitral Valve The mitral valve has normal leaflets. Tricuspid Valve The tricuspid valve leaflets are normal. There is mild tricuspid valve stenosis. Pericardium/Pleural The pericardium appears normal. Aorta The aortic root size at the sinus of Valsalva is normal. Left Ventricular Outflow Tract Name Value Normal LVOT Doppler LVOT Peak Gradient 6 mmHg LVOT Mean Gradient 3 mmHg LVOT VTI 21 cm LVOT VTI/AV VTI Ratio 0.9 Pulmonic Valve Name Value Normal RVOT Doppler RVOT Peak Gradient 2 mmHg PV Doppler PV Peak Gradient 4 mmHg Mitral Valve Name Value Normal MV Doppler MV Decel [place] 383 cm/s2 MV PHT 58 ms MV Area (PHT) 3.8 cm2 4.0-5.0 MV Diastolic Function MV E Peak Velocity 76 cm/s MV A Peak Velocity 105 cm/s MV E/A 0.7 MV Decel Time 198 ms
[2023-07-21] MEDS: FUROSEMIDE INJ 40 MG/4 ML VIAL IV PUSH (09:04)
--- NOTE | 2023-07-21 11:18 | PM.IMPN ---
Progress Note: A&P Assessment and Plan (1) COVID-19: Code(s): U07.1 - COVID-19 Status: Acute Assessment and Plan: No indication for dexamethasone or remdesivir at this time. He was started on azithromycin and ceftriaxone in the emergency department for possible pneumonia which will be continued for now however bacterial pneumonia seems less likely (leukocytosis is likely elevated due to suspected CLL). Initiate isolation precautions. Continue supportive care. (2) Elevated troponin: Code(s): R77.8 - Other specified abnormalities of plasma proteins Status: Acute Assessment and Plan: Troponin is mildly elevated but has been flat making acute coronary syndrome unlikely. He has not had any chest pain whatsoever. EKG showed a sinus rhythm with incomplete right bundle branch block without ST segment changes. Echocardiogram ordered. (3) Pleural effusion: Code(s): J90 - Pleural effusion, not elsewhere classified Status: Acute Assessment and Plan: Moderate bilateral pleural effusions noted on imaging today. Etiology not entirely clear. Troponin and BNP are both mildly elevated and an echocardiogram has been ordered for further evaluation. He received 40 mg IV furosemide in the ED. Continue lasix. (4) Bilateral leg edema: Code(s): R60.0 - Localized edema Status: Acute Assessment and Plan: Patient reports this has developed in the last week or so. Venous Doppler ultrasounds were negative for DVT. Total protein and albumin are quite low which could be causing some of the swelling. He also has bilateral pleural effusions, mildly elevated troponin BNP, and echocardiogram has been ordered to assess for possible CHF. (5) Elevated LFTs: Code(s): R79.89 - Other specified abnormal findings of blood chemistry Status: Acute Assessment and Plan: Total bilirubin, AST, and alkaline phosphatase are all a bit elevated. Abdominal exam is benign and CT of the abdomen and pelvis did not show any acute findings. May be related to COVID however unusual that ALT is normal. Check hepatitis panel and monitor. (6) Abnormal CBC: Code(s): R79.89 - Other specified abnormal findings of blood chemistry Status: Acute Assessment and Plan: 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 Hematology consulted. (7) Thrombocytopenia: Code(s): D69.6 - Thrombocytopenia, unspecified Status: Acute Assessment and Plan: Possibly sequestration as spleen feels a bit large on exam. Concerns for CLL as above. (8) Abnormal coagulation profile: Code(s): R79.1 - Abnormal coagulation profile Status: Acute Assessment and Plan: PT, PTT, and INR are all normal however fibrinogen is low, D-dimer is markedly elevated, and platelet count is low. Concerns for chronic DIC. No evidence of bleeding or thrombus at this time. Hematology consulted as above. Subjective Date/time seen: 07/21/23 11:18 Interval history: breathing is better edema is better echo pending Exam Narrative: General: Mildly ill-appearing gentleman in the semi-Goodson position in bed in no acute distress. Weight: 69.3 kg. BMI: 23.2. HEENT: PERRL, EOMI. Sclera anicteric. Oral mucosa moist. Tacky mucous membranes. Neck: Supple. No lymphadenopathy or JVD. Respiratory: Respirations are nonlabored and he is speaking in full sentences. Lung sounds are diminished at the bases with fine crackles. Cardiovascular: Regular rate and rhythm with S1-S2. Gastrointestinal: Abdomen is soft, nontender, and nondistended with positive bowel sounds. Spleen feels a bit enlarged. Skin: Warm and dry. No rash or lesions on limited exam. Extremities: No cyanosis or clubbing. 2+ lower extremity edema bilaterally to the knees. No palpable knots or cords. Negative Mary Ellen sign bilaterally. Neurological: Alert. Cranial nerve
[2023-07-21] MEDS: AZITHROMYCIN 500 MG/NS 250 ML 500 MG/250 ML BAG 250 MG IVPB (15:26)
[2023-07-21] MEDS: diphenhydrAMINE HCl CAP 25 MG CAPSULE PO (21:23)
[2023-07-22] VITALS (8 sets, daily range): BP systolic 121–127; BP diastolic 56–68; PULSE 51–100; RESP 18–20; TEMP 36.1–36.8; O2SAT 93–97
[2023-07-22] MEDS: FUROSEMIDE INJ 40 MG/4 ML VIAL IV PUSH (10:52)
--- NOTE | 2023-07-22 11:29 | PM.IMPN ---
Progress Note: A&P Assessment and Plan (1) COVID-19: Code(s): U07.1 - COVID-19 Status: Acute Assessment and Plan: No indication for dexamethasone or remdesivir at this time. Not on oxygen, respiratory status ok (2) Elevated troponin: Code(s): R77.8 - Other specified abnormalities of plasma proteins Status: Acute Assessment and Plan: Echo noted, no cp (3) Pleural effusion: Code(s): J90 - Pleural effusion, not elsewhere classified Status: Acute Assessment and Plan: Monitor (4) Bilateral leg edema: Code(s): R60.0 - Localized edema Status: Acute Assessment and Plan: improved echo noted lasix (5) Elevated LFTs: Code(s): R79.89 - Other specified abnormal findings of blood chemistry Status: Acute Assessment and Plan: Covid vs hematologic process (6) Abnormal CBC: Code(s): R79.89 - Other specified abnormal findings of blood chemistry Status: Acute Assessment and Plan: 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 Hematology consulted. (7) Thrombocytopenia: Code(s): D69.6 - Thrombocytopenia, unspecified Status: Acute Assessment and Plan: Possibly sequestration as spleen feels a bit large on exam. Concerns for CLL as above. (8) Abnormal coagulation profile: Code(s): R79.1 - Abnormal coagulation profile Status: Acute Assessment and Plan: Hematology consulted as above. Subjective Date/time seen: 07/22/23 11:29 Interval history: no new complaints edema is better Exam Narrative: General: Mildly ill-appearing gentleman in the semi-Goodson position in bed in no acute distress. Weight: 69.3 kg. BMI: 23.2. HEENT: PERRL, EOMI. Sclera anicteric. Oral mucosa moist. Tacky mucous membranes. Neck: Supple. No lymphadenopathy or JVD. Respiratory: Respirations are nonlabored and he is speaking in full sentences. Lung sounds are diminished at the bases with fine crackles. Cardiovascular: Regular rate and rhythm with S1-S2. Gastrointestinal: Abdomen is soft, nontender, and nondistended with positive bowel sounds. Spleen feels a bit enlarged. Skin: Warm and dry. No rash or lesions on limited exam. Extremities: No cyanosis or clubbing. 2+ lower extremity edema bilaterally to the knees. No palpable knots or cords. Negative Mary Ellen sign bilaterally. Neurological: Alert. Cranial nerves 2-12 are grossly intact. No gross focal deficits to casual conversation. Psychiatric: Pleasant and cooperative with normal mood and affect. Judgment and insight intact. Objective Data Vital Signs Vital Signs: Vital Signs - 24 hr 07/21/23 12:00 07/21/23 16:00 07/21/23 16:35 Temperature 97.2 F L Pulse Rate 94 89 91 Respiratory Rate 20 Blood Pressure 115/63 Pulse Oximetry 100 07/21/23 20:20 07/21/23 20:00 07/22/23 00:00 Temperature 97.4 F L Pulse Rate 92 90 89 Respiratory Rate 18 Blood Pressure 125/59 L Pulse Oximetry 96 07/22/23 04:00 07/22/23 04:00 07/22/23 08:15 Temperature 98.2 F 96.9 F L Pulse Rate 89 51 L 90 Respiratory Rate 20 18 Blood Pressure 127/68 121/67 Pulse Oximetry 97 93 Intake/Output Intake/Output: Intake & Output 07/19/23 07/20/23 07/21/23 07/22/23 23:59 23:59 23:59 23:59 Intake Total 540 1220 1180 840 Output Total 1000 900 Balance 540 220 280 840 Meds/Results Medications: Active Medications Generic Name Dose Route Start Last Admin Trade Name Freq PRN Reason Stop Dose Admin Acetaminophen 650 mg 07/20/23 00:27 Acetaminophen 325 Mg Tablet PO Q6H PRN Mild Pain (1-3) or Fever Albuterol 2 puff 07/20/23 00:27 Albuterol Sulfate (*Sp) Aerosol 1 Puff INHALATION QIDRT PRN Shortness Of Breath Furosemide 40 mg 07/21/23 09:00 07/22/23 10:52 Furosemide Inj 40 Mg/4 Ml Vial IV PUSH 40 mg DAILY BANDAR
[2023-07-22 12:42] LABS: Hematocrit 33.7 % (42.0-52.0); Hemoglobin 10.9 g/dL (14.0-18.0); Immature Platelet Fraction Pct 7.4 % (0.9-11.2); Mean Corpuscular HGB Conc 32.3 g/dl (32-36); Mean Corpuscular Hemoglobin 33.9 pg (26-34); Mean Corpuscular Volume 104.7 fl (80-100); Mean Platelet Volume 11.1 fl (7.4-10.4); Platelet Count Result 25 k/mm3 (150-375); Red Blood Count 3.22 M/mm3 (4.6-6.20); Red Cell Distribution Width 17.5 % (11.5-14.5)
[2023-07-22 12:52] LABS: Anion Gap 5 mmol/L (8-16); Blood Urea Nitrogen 16 mg/dL (9-20); Calcium 7.7 mg/dL (8.4-10.2); Carbon Dioxide 27 mmol/L (22-30); Chloride 100 mmol/L (98-107); Estimated CRCL calculation 60 ml/min; Estimated Glomerular Filt Rate > 60; Glucose 87 mg/dL (65-110); Potassium 3.8 mmol/L (3.4-5.0); Sodium 132 mmol/L (137-145)
[2023-07-22] MEDS: AZITHROMYCIN 500 MG/NS 250 ML 500 MG/250 ML BAG 250 MG IVPB (13:10)
[2023-07-22 14:10] LABS: Band Neutrophils Percent 3 % (0-6); Lymphocytes Absolute Manual 13.57 K/mm3 (1.1-4.5); Metamyelocytes Percent 2 %; Monocytes Absolute Manual 2.76 K/mm3 (0.1-0.90); Monocytes Percent Manual 12 % (3-9); Neutrophils Absolute Manual 6.21 K/mm3 (1.3-6.7); Neutrophils Percent Manual 24 % (46-73); Total Cells Counted 100
[2023-07-22 14:13] LABS: Anisocytosis 1+ (NORMAL); Atypical Lymphocytes Present; Platelet Estimate Decreased (Adequate); Schistocytes None Seen (NORMAL)
--- NOTE | 2023-07-22 19:52 | PDONCCN ---
HPI - Date of Consult Date/Time: 07/22/23 19:52 Requesting Physician: Idalia Oleary DO Primary Care Provider: Samantha Javier, PA - Consult Narrative Reason for consult: Leukocytosis, thrombocytopenia and anemia Narrative: Charles Rao is a 77 year old male with history of prostate cancer status post radiation therapy treatment came into the hospital with generalized weakness. He denies any night sweats fever chills and weight loss. He does have some lower extremity swelling with weakness and shortness of breath. Labs showed elevated WBC count [place] 29,000 [place] [address]. He was also slightly anemic but denies any bleeding. CT chest abdomen pelvis showed no evidence of pulmonary embolism but there was bilateral pleural effusion and moderate emphysema. He was tested positive for COVID infection. Review of Systems - Review of Systems All systems reviewed & are unremarkable except as noted in HPI and [facility] Medical History: Medical History (Last Updated 07/19/23 @ 18:17 by Luisa Thomas PA-C) Osteoporosis Prostate cancer Onset Date: 2017 Status post radiation. Surgical History: Surgical History (Last Updated 07/19/23 @ 18:17 by Luisa Thomas PA-C) History of colonoscopy History of right inguinal hernia repair Family History: Family History (Last Reviewed 07/19/23 @ 18:18 by Luisa Thomas PA-C) Father Cancer Father Family history of malignant neoplasm - Social History Social History: Social History (Last Updated 07/20/23 @ 00:21 by Luisa Thomas PA-C) Alcohol Use: Alcohol intake: current Drinks per week: 14 Substance Use: Substance use: never Substance use type: does not use Others: Spiritual care concerns: No Living Arrangements: Living arrangements: alone Oppucation/Education: Occupation/Education: retired Smoking Status: Smoking status: Former smoker Tobacco type: cigarettes Second hand tobacco smoke exposure: No Approximate Smoking End Date: 2015 Smoking Pack-years: Smoking packs per day: 1 Smoking cigarettes per day: 20.0 Years smoked: 25 Smoking pack-years: 25.00 Social Determinants of Health: Has the Lack of Transportation Kept You From Medical Appointments or From Getting Medications?: No Within the Past 12 Months, Were You Worried Whether Your Food Would Run Out Before You Got Money to Buy More?: Never True What is Your Housing Situation Today?: I Have Housing Are You Worried That in the Next 2 Months, You May Not Have Your Own Housing to Live In?: Decline to Answer Do You Have Trouble Paying Your Heating Or Electricity Bill?: Decline to Answer Do You Have Trouble Paying For Medicines?: Decline to Answer Are You Currently Unemployed and Looking for Work?: Decline to Answer Highest Level of Education Completed: Decline to Answer Do You Have Trouble With Childcare or the Care of a Family Member?: No Exam - Vital Signs Vital Signs - 24 hr 07/21/23 20:20 07/21/23 20:00 07/22/23 00:00 Temperature 36.3 C L Pulse Rate 92 90 89 Respiratory Rate 18 Blood Pressure 125/59 L Pulse Oximetry 96 Oxygen Delivery 07/22/23 04:00 07/22/23 04:00 07/22/23 08:15 Temperature 36.8 C 36.1 C L Pulse Rate 89 51 L 90 Respiratory Rate 20 18 Blood Pressure 127/68 121/67 Pulse Oximetry 97 93 Oxygen Delivery 07/22/23 16:33 07/22/23 08:00 07/22/23 12:00 Temperature 36.3 C L Pulse Rate 100 96 96 Respiratory Rate 18 Blood Pressure 124/61 Pulse Oximetry 93 Oxygen Delivery 07/22/23 16:00 07/22/23 08:00 Temperature Pulse Rate 93 Respiratory Rate Blood Pressure Pulse Oximetry Oxygen Delivery Room Air - Exam HEENT: EOMI, PERRLA, mucous membranes moist and pink Neck: supple. No: JVD Lungs: clear to auscultation, normal air movement Heart: no murmurs, gallops, or rubs, r
[2023-07-22] MEDS: diphenhydrAMINE HCl CAP 25 MG CAPSULE PO (22:38)
[2023-07-22 23:51] LABS: Folic Acid 5.4 ng/mL (2.76->20)
[2023-07-22 23:59] LABS: Iron 92 ug/dL (49-181)
[2023-07-23] VITALS (11 sets, daily range): BP systolic 109–132; BP diastolic 48–66; PULSE 89–101; RESP 12–18; TEMP 36.8–38; O2SAT 93–96
[2023-07-23 00:11] LABS: Percent Iron Saturation 27 % (20-50)
[2023-07-23] MEDS: FUROSEMIDE INJ 40 MG/4 ML VIAL IV PUSH (09:34)
[2023-07-23 10:04] LABS: Haptoglobin 137 mg/dL (43-212)
--- NOTE | 2023-07-23 10:47 | PM.IMPN ---
Progress Note: A&P Assessment and Plan (1) COVID-19: Code(s): U07.1 - COVID-19 Status: Acute Assessment and Plan: No indication for dexamethasone or remdesivir at this time. Not on oxygen, respiratory status ok (2) Elevated troponin: Code(s): R77.8 - Other specified abnormalities of plasma proteins Status: Acute Assessment and Plan: Echo noted, no cp (3) Pleural effusion: Code(s): J90 - Pleural effusion, not elsewhere classified Status: Acute Assessment and Plan: Monitor (4) Bilateral leg edema: Code(s): R60.0 - Localized edema Status: Acute Assessment and Plan: improved echo noted lasix (5) Elevated LFTs: Code(s): R79.89 - Other specified abnormal findings of blood chemistry Status: Acute Assessment and Plan: Covid vs hematologic process (6) Abnormal CBC: Code(s): R79.89 - Other specified abnormal findings of blood chemistry Status: Acute Assessment and Plan: 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 Hematology consulted. Workup in progress (7) Thrombocytopenia: Code(s): D69.6 - Thrombocytopenia, unspecified Status: Acute Assessment and Plan: Possibly sequestration as spleen feels a bit large on exam. Concerns for CLL as above. (8) Abnormal coagulation profile: Code(s): R79.1 - Abnormal coagulation profile Status: Acute Assessment and Plan: Hematology consulted as above. Subjective Date/time seen: 07/23/23 10:47 Interval history: No overnight issues Review of Systems Review of Systems: Negative other than HPI Exam Narrative: General: no acute distress. HEENT: PERRL, EOMI. Sclera anicteric. Oral mucosa moist. Tacky mucous membranes. Neck: Supple. No lymphadenopathy or JVD. Respiratory: Respirations are nonlabored and he is speaking in full sentences. Lung sounds are diminished at the bases with fine crackles. Cardiovascular: Regular rate and rhythm with S1-S2. Gastrointestinal: Abdomen is soft, nontender, and nondistended with positive bowel sounds. Spleen feels a bit enlarged. Skin: Warm and dry. No rash or lesions on limited exam. Extremities: No cyanosis or clubbing. 2+ lower extremity edema bilaterally to the knees. No palpable knots or cords. Negative Mary Ellen sign bilaterally. Neurological: Alert. Cranial nerves 2-12 are grossly intact. No gross focal deficits to casual conversation. Psychiatric: Pleasant and cooperative with normal mood and affect. Judgment and insight intact. Objective Data Vital Signs Vital Signs: Vital Signs - 24 hr 07/22/23 16:33 07/22/23 12:00 07/22/23 16:00 Temperature 97.4 F L Pulse Rate 100 96 93 Respiratory Rate 18 Blood Pressure 124/61 Pulse Oximetry 93 Oxygen Delivery 07/22/23 20:12 07/23/23 00:00 07/23/23 04:00 Temperature 98 F Pulse Rate 95 89 90 Respiratory Rate 18 Blood Pressure 121/56 L Pulse Oximetry 97 Oxygen Delivery 07/23/23 06:00 07/23/23 08:00 Temperature 98.2 F Pulse Rate 91 Respiratory Rate 16 Blood Pressure 109/48 L Pulse Oximetry 93 Oxygen Delivery Room Air Intake/Output Intake/Output: Intake & Output 07/20/23 07/21/23 07/22/23 07/23/23 23:59 23:59 23:59 23:59 Intake Total 1220 / 1220 1180 / 1180 1740 / 1740 300 / 300 Output Total 1000 / 1100 900 / 900 2 / 2 Balance 220 / 120 280 / 280 1738 / 1738 300 / 300 Meds/Results Medications: Active Medications Generic Name Dose Route Start Last Admin Trade Name Freq PRN Reason Stop Dose Admin Acetaminophen 650 mg 07/20/23 00:27 Acetaminophen 325 Mg Tablet PO Q6H PRN Mild Pain (1-3) or Fever Albuterol 2 puff 07/20/23 00:27 Albuterol Sulfate (*Sp) Aerosol 1 Puff INHALATION QIDRT PRN Shortness Of Breath Furosemide 40 mg 07/21/23 09:00 07/23/23
[2023-07-23] MEDS: AZITHROMYCIN 500 MG/NS 250 ML 500 MG/250 ML BAG 250 MG IVPB (13:16)
[2023-07-23] MEDS: diphenhydrAMINE HCl CAP 25 MG CAPSULE PO (20:32)
[2023-07-23] MEDS: ACETAMINOPHEN 325 MG TABLET 650 MG PO (20:33)
[2023-07-24] VITALS: PULSE 85
[2023-07-24] MEDS: traZODone HCL 50 MG TABLET PO (00:35)
[2023-07-24 04:00] VITALS: PULSE 88
[2023-07-24 08:00] VITALS: PULSE 91
[2023-07-24] MEDS: FUROSEMIDE INJ 40 MG/4 ML VIAL IV PUSH (08:36)
--- NOTE | 2023-07-24 11:16 | PM.DS ---
DS: Admitting Diagnosis Discharge Date 07/24/2023 Admitting Diagnosis COVID DS: Discharge Diagnosis Discharge Diagnosis (1) COVID-19: Code(s): U07.1 - COVID-19 Status: Acute (2) Elevated LFTs: Code(s): R79.89 - Other specified abnormal findings of blood chemistry Status: Acute DS: Summary Hospital Course Hospital Course: Charles Rao is a 77 year old male with history of prostate cancer status post radiation therapy treatment came into the hospital with generalized weakness.? He denies any night sweats fever chills and weight loss.? He does have some lower extremity swelling with weakness and shortness of breath.? Labs showed elevated WBC count of 29,000 [place] [address].? He was also slightly anemic but denies any bleeding.? CT chest abdomen pelvis showed no evidence of pulmonary embolism but there was bilateral pleural effusion and moderate emphysema.? He was tested positive for COVID infection. Patient was asymptomatic so he was not put on any remdesivir or dexamethasone. Oncology was consulted for elevated white cell count. Workup is in progress. Liver ultrasound is normal. He will follow up with Oncology as outpatient. He is stable and being discharged home Time Spent with Patient Time attestation: Total time spent providing and/or coordinating discharge services: DS: Data Data Completed and Pending Pending studies at discharge: Pending at discharge 07/22/23 19:56 Surgical [PTH] Routine Labs on day of discharge: Preliminary micro results at discharge 07/19/23 12:53 Blood Culture - Preliminary Blood 07/19/23 12:53 Blood Culture - Preliminary Blood Discharge Plan Discharge Consulting providers: Rogelio Garner; Lalitha Wilburn Discharging Clinician: Angel Richards Anticipated Discharge Date/Time: 07/24/23 11:15 Patient Disposition: Home, Self-Care Activity: no preference Diet: heart healthy Patient Instructions: Antibiotic Form Stand Alone Forms: General Discharge Information Follow-up/Referrals: Rogelio Garner MD [Physician] - Yaya,CARITO Thompson [Primary Care Provider] - Discharge Medications: No Action No Home Medications Date of admission: 07/19/23 17:10 Primary Care Provider: Yaya,Samantha Valdez Admitting Provider: Idalia Oleary Attending physician on admission: Angel Richards Condition: Stable
[2023-07-24 12:00] VITALS: PULSE 100
== END 2023-07-24 13:30 | disposition home or self-care (01) | DRG 179 ==
LOC: ANHED 09:39 → ANHIMU 16:58 → ANH3MED 07-22 20:20
PROVIDERS: Chiropractor; Emergency Medicine; Internal Medicine Hematology & Oncology; Physician Assistant; Admitting Provider Student in an Organized Health Care Education/Training Program; Emergency Provider Physician Assistant; PCP Physician Assistant; Visit Provider Hospitalist
DX: U07.1 COVID-19 (principal); J43.9 Emphysema, unspecified; D69.6 Thrombocytopenia, unspecified; R77.8 Other specified abnormalities of plasma proteins; R60.0 Localized edema; R79.89 Other specified abnormal findings of blood chemistry; R79.1 Abnormal coagulation profile; Z85.46 Personal history of malignant neoplasm of prostate; Z87.891 Personal history of nicotine dependence; Z92.3 Personal history of irradiation
CPT/HCPCS: 36415; 71045; 71275; 74177; 76700; 80048; 80053; 80074; 81001; 82607; 82728; 82746; 83010; 83540; 83550; 83605; 83615; 83880; 84484; 85025; 85027; 85055; 85380; 85384; 85610; 85730; 86023; 86140; 87040; 87636; 88184; 93005; 93306; 93970; 94640; 96365; 96367; 96375; 99285; A9270; J0456; J0696; J1940; Q9967